=== PATIENT | male | born 2000 | race Caucasian/White ===

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

== ENCOUNTER 2022-07-18 23:02 | Emergency (ER) | payer MEDICAID ==
[2022-07-18] MEDS ORDERED: Lidocaine 1% 10 ML MDV INJECT ONE (23:51)
[2022-07-18] MEDS ORDERED: Bupivacaine 0.5% 30 ML SDV INJECT ONE (23:51)
== END 2022-07-19 00:06 | disposition home or self-care (01) ==
LOC: DL.ED 23:02
DX: K08.89 Other specified disorders of teeth and supporting structures (principal)
CPT/HCPCS: 64400; 99282; J3490